=== PATIENT | female | born 1950 | race Caucasian/White ===

== ENCOUNTER 2022-02-07 12:52 | Outpatient (NON) | payer MEDICARE, SELFPAY ==
[2022-02-07 13:12] LABS: Vancomycin Trough 7.6 ug/mL (10.0-20.0)
== END 2022-02-07 12:53 | disposition home or self-care (01) ==
LOC: HOME HLTH 13:00
PROVIDERS: PCP Internal Medicine; Visit Provider Internal Medicine
DX: M86.9 Osteomyelitis, unspecified (principal)
CPT/HCPCS: 80202